=== PATIENT | female | born 1995 | race Caucasian/White ===

== ENCOUNTER 2025-11-19 13:25 | Emergency (ER) | payer OTHER ==
[~2025-11-19] VITALS: Ht 160 cm; Wt 68.0 kg
[2025-11-19] MEDS ORDERED: SODIUM CHLORIDE 0.9% 1,000 ML IV ONE ×2 (14:00→16:30)
[2025-11-19 14:10] LABS: BASO # 0.0 10*3/uL (0.0-0.1); BASO % 0.4 % (0.0-1.0); EOS # 0.0 10*3/uL (0.0-0.4); EOS % 0.4 % (1.0-4.0); MEAN CELL VOLUME 88.9 fl (81.0-99.0); MEAN CORPUSCULAR HGB 30.1 pg (27.0-31.0); MEAN PLATELET VOLUME 9.2 fl (9.6-12.3); MONO # 0.7 10*3/uL (0.1-1.0); MONO % 13.9 % (3.0-9.0); NEUT # 3.7 10*3/uL (2.3-7.9); NEUT % 71.8 % (47.0-73.0); NUCLEATED RED BLOOD CELL 0.0 % (0.0-0.0); NUCLEATED RED BLOOD CELL 0.0 10*3/uL (0.0-0.0); PLATELET COUNT AUTOMATED 222 10*3/uL (130-400); RED CELL DISTRI WIDTH 13.5 % (0-14.5)
[2025-11-19 14:40] LABS: BUN 8 mg/dl (9-23); SGPT/ALT 41 U/L (5-49)
[2025-11-19 14:42] LABS: BILIRUBIN Negative (Negative); BLOOD Negative (Negative); CLARITY Clear (Clear); COLOR Yellow (Yellow); KETONE 1+ (Negative); LEUKO ESTERASE Trace (Negative); NITRITE Negative (Negative); PH 7.0 (4.5-8.0); SPECIFIC GRAVITY 1.010 (1.001-1.030); UROBILINOGEN 0.2 E.U./dl (0.0-1.0)
[2025-11-19 14:53] LABS: BACTERIA 2+; EPITHELIAL CELLS 31-40; MUCOUS 1+; RBC 0-2 rbc/hpf (0-2); WBC 16-20 wbc/hpf (0-5)
[2025-11-19 15:23] LABS: ACT PARTIAL THROMBO TIME 25.0 SECONDS (20.0-32.1)
[2025-11-19] MEDS ORDERED: Metoclopramide Hydrochloride 10 MG/2 ML VIAL IV ONE (16:30)
[2025-11-19] MEDS ORDERED: diphenhydrAMINE hydrochloride 50 MG/ML VIAL IV ONE (16:30)
[2025-11-19] MEDS ORDERED: IOHEXOL 350 MG/ML 100 ML VIAL IV ONE (17:05)
[2025-11-19] MEDS ORDERED: SODIUM CHLORIDE 0.9% 100 ML BAG IV ONE (17:05)
[2025-11-19] MEDS ORDERED: ACETAMINOPHEN 325 MG TAB PO ONE (19:25)
[2025-11-19] MEDS ORDERED: CEPHALEXIN500 M1 PO (21:04)
[2025-11-19] MEDS ORDERED: CEPHALEXIN 500 MG CAP PO ONE (21:05)
== END 2025-11-19 21:17 | disposition home or self-care (01) ==
LOC: ED 13:25
PROVIDERS: Nurse Practitioner Family
DX: B34.9 Viral infection, unspecified (principal); R07.89 Other chest pain; R82.71 Bacteriuria; R79.1 Abnormal coagulation profile; Z20.822 Contact with and (suspected) exposure to COVID-19